=== PATIENT | male | born 1975 | race Caucasian/White ===

== ENCOUNTER 2016-10-20 12:22 | Emergency (ER) | payer MEDICAID ==
[2016-10-20 12:27] VITALS: BP 120/91; PULSE 90; RESP 20; TEMP 98.9; O2SAT 97
[2016-10-20] MEDS ORDERED: QUET150XR PO (12:39)
[2016-10-20] MEDS ORDERED: CELE20TA PO (12:39)
[2016-10-20] MEDS ORDERED: PROPARACAINE HCL 0.5% OPHT SOLN 15 ML BTL EACH EYE ONE (13:00)
--- NOTE | 2016-10-20 13:24 | PD ---
HPI Chief Complaint: Eye Problems/Injury Time Seen by Provider: 13:00 Travel History International Travel<30 days: No Contact w/Intl Traveler<30days: No Traveled to known affect area: No History of Present Illness HPI 41-year-old male presents the emergency department with foreign body to the left side. Patient states he was wearing safety glasses while he was grinding and he had sudden onset discomfort in the left eye. Patient states he tried to rinse the eye out himself but was unable to feel like foreign body was removed. He is here for an evaluation. He denies any visual problems. She feels or something still in there and pain as a 7/10. He has no known drug allergies. PFSH Past Medical History Depression: Yes Tetanus Vaccination: Unknown Influenza Vaccination: No Past Surgical History Surgical History: No Previous Surgery Social History Alcohol Use: Yes ("RARELY") Tobacco Use: Yes (1/2 PPD) Substance Use: No Allergies-Medications (Allergen,Severity, Reaction): Coded Allergies: No Known Allergies (Unverified , 10/20/16) Reported Meds & Prescriptions Reported Meds & Active Scripts Active Erythromycin Opth Oint 5 Mg/Gm Oint 1 Applic EACH EYE QID Reported Celexa (Citalopram Hydrobromide) 20 Mg Tab 20 Mg PO DAILY Seroquel XR (Quetiapine Fumarate) 150 Mg Tab 150 Mg PO HS Review of Systems Except as stated in HPI: all other systems reviewed are Neg General / Constitutional: No: Fever Eyes: Positive: Photophobia, Redness, Foreign Body Sensation, Pain, Tearing, No: Diploplia, Blurred Vision, Drainage, Blind Spots, Visual changes, Blindness HENT: No: Headaches Cardiovascular: No: Chest Pain or Discomfort Respiratory: No: Shortness of Breath Gastrointestinal: No: Abdominal Pain Genitourinary: No: Dysuria Musculoskeletal: No: Pain Skin: No Rash Neurologic: No: Weakness Psychiatric: No: Depression Endocrine: No: Polydipsia Hematologic/Lymphatic: No: Easy Bruising Physical Exam Narrative GENERAL: Patient appears in moderate distress. SKIN: Warm and dry. Normal color. Normal turgor. HEAD: Atraumatic. Normocephalic. EYES: Pupils equal and round. No scleral icterus. Mild injection in the left with tearing. Obvious foreign bodies noted at the 3 o'clock position just at the edge of the iris/cornea. ENT: No nasal bleeding or discharge. Mucous membranes pink and moist. Pharynx is normal. NECK: Trachea midline. Neck is supple. CARDIOVASCULAR: Regular rate and rhythm. RESPIRATORY: No accessory muscle use. MUSCULOSKELETAL: Extremities without clubbing, cyanosis, or edema. No obvious deformities. NEUROLOGICAL: Awake and alert. No obvious cranial nerve deficits. Motor grossly within normal limits. Five out of 5 muscle strength in the arms and legs. Normal speech. PSYCHIATRIC: Appropriate mood and affect; insight and judgment normal. Data Data Last Documented VS Vital Signs Date Time Temp Pulse Resp B/P Pulse Ox O2 Delivery O2 Flow Rate FiO2 10/20/16 12:27 98.9 90 20 120/91 97 Orders Proparacaine 0.5% Opth Soln (Alcaine 0.5 (10/20/16 13:00) Tetanus/Diphtheria Tox Adult (Tetanus/Di (10/20/16 13:30) MDM Medical Decision Making Medical Screen Exam Complete: Yes Emergency Medical Condition: Yes Differential Diagnosis Left eye pain. Foreign body left eye. Corneal abrasion. Narrative Course Patient is stable at time. Left Eye is anesthetized with proparacaine drops with good anesthetic effect. Foreign body is easily removed with cotton Q-tip. Patient will be treated with erythromycin ointment to the left eye every 3-4 hours while awake for the next 5 days. Patient take ibuprofen as needed for pain. Patient follow up if symptoms worsen as needed. Procedures Procedure Narrative Left eye was anesthetized with proparacaine. Foreign body was removed easily with a Q-tip. Patient tolerated the procedure well. Diagnosis Primary Impression: Foreign body of left eye Qualified Code: T15.92XA - Foreign body of left eye, initial encounter Referrals: Senior Inspector Patient Instructions: Corneal Abrasion (ED), General Instructions Additional Instructions: Left Eye is anesthetized with proparacaine drops with good anesthetic effect. Foreign body is easily removed with cotton Q-tip. Patient will be treated with erythromycin ointment to the left eye every 3-4 hours while awake for the next 5 days. Patient take ibuprofen as needed for pain. Patient follow up if symptoms worsen as needed. Med/Other Pt SpecificInfo: Prescription(s) given Scripts Erythromycin Opth Oint 5 Mg/Gm Oint1 Applic EACH EYE QID #1 TUBE Ref 0 Prov:Tenisha Shin MD 10/20/16 Disposition: 01 DISCHARGE HOME Condition: Stable Richy Brenner Oct 20, 2016 13:24
[2016-10-20] MEDS ORDERED: ERYTOIN10 EACH EYE (13:25)
[2016-10-20] MEDS ORDERED: TETANUS/DIPHTHERIA TOXOID ADULT 0.5 ML VIAL IM ONE (13:30)
== END 2016-10-20 13:42 | disposition home or self-care (01) ==
LOC: PHEFT 12:22
DX: T15.92XA Foreign body on external eye, part unspecified, left eye, initial encounter (principal); F17.210 Nicotine dependence, cigarettes, uncomplicated; Z23 Encounter for immunization; X58.XXXA Exposure to other specified factors, initial encounter; Y93.H3 Activity, building and construction; Y92.9 Unspecified place or not applicable; Y99.9 Unspecified external cause status
CPT/HCPCS: 65220; 90471; 90714